=== PATIENT | female | born 1965 | race Caucasian/White ===

== ENCOUNTER 2021-07-17 15:03 | Outpatient (CLI) | payer OTHER, SELFPAY ==
--- NOTE | ~2021-07-17 | MM_ITS ---
EXAMINATION: MM screening [facility] BI w cecy HISTORY: Screening mammogram TECHNIQUE: Craniocaudal and mediolateral oblique 3-D tomosynthesis images were obtained and synthetic 2-D images were generated. CAD analysis was submitted and interpreted. COMPARISON: No prior mammogram is available for comparison at this institution. BREAST PARENCHYMAL COMPOSITION: There are scattered areas of fibroglandular density. FINDINGS: There is no evidence of suspicious mass, calcification, or architectural distortion to sugg est malignancy in either breast. IMPRESSION: 1. No mammographic evidence of malignancy. 2. Recommend routine screening mammography in one year. BI-RADS Category 1: Negative Reviewed, dictated and finalized at location A.
== END 2021-07-17 15:04 | disposition home or self-care (01) ==
LOC: ANHIMG 15:05
PROVIDERS: PCP Nurse Practitioner; Visit Provider Nurse Practitioner
DX: Z12.31 Encounter for screening mammogram for malignant neoplasm of breast (principal)
CPT/HCPCS: 77063; 77067

== ENCOUNTER 2021-08-10 14:01 | Outpatient (RCR) | payer OTHER, SELFPAY ==
[2021-08-10 14:12] VITALS: BMI 38.9
[2021-08-10 14:16] VITALS: BMI 38.9
== END 2021-10-30 10:42 | disposition home or self-care (01) ==
LOC: ANHDMC 14:01
PROVIDERS: PCP Nurse Practitioner; Visit Provider Nurse Practitioner
DX: E66.9 Obesity, unspecified (principal); Z68.38 Body mass index [BMI] 38.0-38.9, adult; Z71.3 Dietary counseling and surveillance
CPT/HCPCS: 97802

== ENCOUNTER 2022-05-25 00:31 | Day surgery (SDC) | payer OTHER, SELFPAY ==
[2022-05-11 08:36] VITALS: BMI 38.3
[2022-05-25 06:39] VITALS: BP 131/62; PULSE 78; RESP 17; TEMP 36.5; O2SAT 97; BMI 37.3
[2022-05-25] MEDS: LACTATED RINGERS 1,000 ML 150 ML IV CONT (06:48)
--- NOTE | 2022-05-25 07:45 | WPDANESEPPF ---
Anes - Initial Pre Proc Eval Procedure: Operation Date: 05/25/22 08:00 Proposed Procedures p Screening Colonoscopy - Serge Rodrigez MD Date/Time: 05/25/22 07:45 Surgeon: Serge Rodrigez MD Pre Op Diagnosis: neoplasm screening Patient Data Age: 56 Gender: F Height: 1.65 m Weight: 101.7 kg Last Vital Signs Temp 97.7 F 05/25/22 06:39 Pulse 78 05/25/22 06:39 Resp 17 05/25/22 06:39 BP 131/62 05/25/22 06:39 Pulse Ox 97 05/25/22 06:39 O2 Del Method Room Air 05/25/22 06:39 Allergies Allergy/AdvReac Type Severity Reaction Status Date / Time No Known Allergies Allergy Verified 05/25/22 06:38 Home Medications Medication Instructions Recorded Confirmed Type oxybutynin chloride 5 mg tablet 5 mg PO DAILY #90 tabs 02/26/22 05/25/22 Rx simvastatin 10 mg tablet 10 mg PO QHS #90 tabs 02/26/22 05/25/22 Rx famotidine 20 mg tablet 20 mg PO BID #60 tabs 03/13/22 05/25/22 Rx Patient hx anesthesia problems: none Family hx anesthesia problems: none Results Review: All pre-operative results and documents have been reviewed as part of the pre-operative evaluation. [facility] Past Medical History Medical History GERD (gastroesophageal reflux disease) Prediabetes Urge incontinence Surgical History Surgical History History of bladder surgery (~2010) Family History Family History Sibling Diabetes mellitus Family history of obesity Alcoholism Cancer Mother Hypertension Family history of arthritis Family history of congestive heart failure Family history of hearing loss Heart disease Cerebrovascular accident Father Family history of alcoholism Alcoholism Hypertension Grandparent Cancer Other Depression Anxiety Social History Social History Smoking status: Never smoker Tobacco type: cigarettes Additional smoking assessment comments: Father smoked Alcohol intake: never Substance use: never Substance use type: does not use Living arrangements: alone Spiritual care concerns: No Anes - Eval Final PreProcedure Day of Procedure 05/25/22 07:45 Patient weight: obese Heart: regular rate and rhythm Lungs: clear to auscultation Airway: Mallampati scale class II Neurological: alert and oriented Last oral intake: >/= 8 hours ASA classification: II Emergent: no Anesthetic plan: proceed Anesthesia type and monitoring: general GIVS and standard monitoring Results Review: All pre-operative results and documents have been reviewed as part of the pre-operative evaluation. Informed Consent: The patient's anesthetic plan and its attendant risks and benefits were discussed with the patient/family/POA. Questions were solicited and answers provided to the satisfaction of the patient/family/POA.
--- NOTE | 2022-05-25 07:52 | PM.HPGS ---
History of Present Illness History of Present Illness Consent: Risks, benefits, and alternatives have been discussed and questions answered. Patient agrees to proceed with procedure. Chief complaint: neoplasm screening Narrative: Chayo Soares is a 56 year old female here for screening colonoscopy, last one 6 years ago Review of Systems Constitutional: Constitutional: Denies headache(s) and Denies weakness Eyes: Eyes: Denies blurry vision ENT: Reports Normal hearing present, Denies headache(s) and Denies neck pain Cardiovascular: Cardiovascular: Denies chest pain and Denies dyspnea Respiratory: Respiratory: Denies dyspnea Gastrointestinal: Gastrointestinal: Reports no additional gastrointestinal complaints Genitourinary: Genitourinary: Denies dysuria Musculoskeletal: Musculoskeletal: Denies neck pain Integumentary/Breasts: Skin/Breast: Denies dry skin Neurologic: Reports Normal hearing present, Denies headache(s) and Denies weakness Psychiatric: Psychiatric: Denies anxiety Endocrine: Endocrine: Denies change in body appearance Hematologic/Lymphatic: Hematologic/Lymphatic: Denies easy bleeding Allergic/Immunologic: Allergic/Immunologic: Denies urticaria PMFSH Past Medical History Medical History (Updated 05/25/22 @ 07:53 by Serge Rodrigez MD) Colon cancer screening GERD (gastroesophageal reflux disease) Prediabetes Urge incontinence Surgical History Surgical History History of bladder surgery (~2010) Family History Family History Sibling Diabetes mellitus Family history of obesity Alcoholism Cancer Mother Hypertension Family history of arthritis Family history of congestive heart failure Family history of hearing loss Heart disease Cerebrovascular accident Father Family history of alcoholism Alcoholism Hypertension Grandparent Cancer Other Depression Anxiety Social History Social History Smoking status: Never smoker Tobacco type: cigarettes Additional smoking assessment comments: Father smoked Alcohol intake: never Substance use: never Substance use type: does not use Living arrangements: alone Spiritual care concerns: No Meds Home Medications and Allergies Home Medications Medication Instructions Recorded Confirmed Type oxybutynin chloride 5 mg tablet 5 mg PO DAILY #90 tabs 02/26/22 05/25/22 Rx simvastatin 10 mg tablet 10 mg PO QHS #90 tabs 04/04/22 07/01/22 Rx famotidine 20 mg tablet 20 mg PO BID #60 tabs 03/13/22 05/25/22 Rx Allergies Allergy/AdvReac Type Severity Reaction Status Date / Time No Known Allergies Allergy Verified 05/25/22 06:38 Vital Signs Vital Signs - 24 hr 05/25/22 06:39 Temperature 97.7 F Pulse Rate 78 Respiratory Rate 17 Blood Pressure 131/62 Pulse Oximetry 97 Oxygen Delivery Room Air Exam Const: General: comfortable and no acute distress HENMT: General nose exam: Normal nares present Eyes: General: appearance normal, both eyes and all related structures Neck: Neck: no JVD Resp: Auscultation: clear to auscultation bilaterally Cardio: Rate: regular rate Rhythm: regular rhythm GI: Inspection: non-distended GI Palp: Yes Soft to palpation Skin: General skin exam: normal color Neuro: General: gait normal Speech: normal speech Extrem: General: normal to inspection Psych: Mental Status: mental status grossly normal Assessment and Plan Assessment and plan (1) Colon cancer screening: Code(s): Z12.11 - Encounter for screening for malignant neoplasm of colon Status: Acute Assessment and Plan: colonoscopy
[2022-05-25 08:16] VITALS: BP 122/68; PULSE 81; RESP 17; O2SAT 94
[2022-05-25 08:26] VITALS: BP 108/61; PULSE 70; RESP 11; O2SAT 98
== END 2022-05-25 08:52 | disposition home or self-care (01) ==
PROVIDERS: PCP Family Medicine; Visit Provider Internal Medicine Gastroenterology
PROC: 0DJD8ZZ Inspection of Lower Intestinal Tract, Via Natural or Artificial Opening Endoscopic (ICD-10-PCS; CPT 45378; principal; 2022-05-25 08:00)
DX: Z12.11 Encounter for screening for malignant neoplasm of colon (principal); K57.30 Diverticulosis of large intestine without perforation or abscess without bleeding; K64.8 Other hemorrhoids; K21.9 Gastro-esophageal reflux disease without esophagitis; R73.03 Prediabetes; N39.41 Urge incontinence; E66.9 Obesity, unspecified; Z68.37 Body mass index [BMI] 37.0-37.9, adult
CPT/HCPCS: 45378; J2001; J2704; J7120

== ENCOUNTER → 2022-10-04 16:20 | Outpatient (CLI) | payer OTHER, SELFPAY ==
--- NOTE | ~2022-10-04 | MR_ITS ---
EXAMINATION: MR shoulder RT wo con DATE: 10/04/2022 17:03 INDICATION: Right shoulder pain. TECHNIQUE: Magnetic resonance imaging (MRI) of the right shoulder was performed without intravenous c ontrast. Sequences included axial PD-weighted FS FSE, coronal oblique PD-weighted FS FSE and T2-weigh niru FS FSE, and sagittal oblique T2-weighted FS FSE and T1-weighted FSE. COMPARISON: None. FINDINGS: Coracoacromial arch: The acromion undersurface is curved in morphology (type II). There is severe acromioclavicular joint osteoarthritis including inferiorly directed osteophytes. There is mild subacromial/subdeltoid bursit is. Rotator cuff: There is a bursal sided partial-thickness tear of anterior supraspinatus tendon measuring 9 mm anteri or to posterior by 4 mm proximal to distal by 80% tendon thickness. There is a small interstitial tea r of infraspinatus tendon. Teres minor tendon is normal. There is mild subscapularis tendinopathy. Th ere is no asymmetric fatty atrophy of the rotator cuff muscle bellies. Biceps tendon and glenoid labrum: Biceps tendon is in bicipital groove. Intra-articular biceps tendon is normal. There is ossification of the posterior labrum. Fluid: There is no glenohumeral joint effusion. Bones/cartilage: There is partial-thickness cartilage loss of glenoid and humeral head. IMPRESSION: 1. Partial-thickness tears of supraspinatus and infraspinatus tendons. 2. Mild glenohumeral joint chondrosis. 3. Severe acromioclavicular joint osteoarthritis. 4. Mild subacromial/subdeltoid bursitis. Reviewed, dictated and finalized at location A. 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
== END ==
PROVIDERS: PCP Family Medicine; Visit Provider Nurse Practitioner
DX: M19.011 Primary osteoarthritis, right shoulder (principal); M75.51 Bursitis of right shoulder
CPT/HCPCS: 73221

== ENCOUNTER 2022-12-18 16:15 | Outpatient (CLI) | payer OTHER, SELFPAY ==
--- NOTE | ~2022-12-18 | MM_ITS ---
EXAMINATION: MM screening [facility] BI w cecy HISTORY: Screening mammogram TECHNIQUE: Craniocaudal and mediolateral oblique 3-D tomosynthesis images were obtained and synthetic 2-D images were generated. CAD analysis was submitted and interpreted. COMPARISON: 07/17/2021 bilateral screening mammogram examination the BREAST PARENCHYMAL COMPOSITION: The breasts are almost entirely fatty. FINDINGS: There is no evidence of suspicious mass, calcification, or architectural distortion to sugg est malignancy in either breast. There has been no suspicious interval change. IMPRESSION: 1. No mammographic evidence of malignancy. 2. Recommend routine screening mammography in one year. BI-RADS Category 1: Negative Reviewed, dictated and finalized at location A. 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
== END 2022-12-18 16:16 | disposition home or self-care (01) ==
PROVIDERS: PCP Family Medicine; Visit Provider Family Medicine
DX: Z12.31 Encounter for screening mammogram for malignant neoplasm of breast (principal)
CPT/HCPCS: 77063; 77067

== ENCOUNTER → 2023-03-25 15:43 | Outpatient (CLI) | payer OTHER, SELFPAY ==
--- NOTE | ~2023-03-25 | XR_ITS ---
EXAMINATION: XR hip RT min 3V w AP pelvis DATE: 03/25/2023 15:58 INDICATION: 2 months of right hip pain TECHNIQUE: Anteroposterior view of the pelvis and anteroposterior and frog-leg lateral views of the r ight hip were obtained. COMPARISON: None. FINDINGS: Bone alignment is normal. No fracture or suspected avascular necrosis. Mild osteoarthritis at the yovany ateral hip and sacroiliac joints. Mild lumbar spondylosis. Relatively symmetric enthesophytes along t he anterosuperior iliac spine, cephalad margins of the lateral acetabula minimally and at the greater trochanters. IMPRESSION: 1. Mild bilateral hip and sacroiliac osteoarthritis. No acute osseous abnormality. Reviewed, dictated and finalized at location B. IMPRESSION: 1. Mild bilateral hip and sacroiliac osteoarthritis. No acute osseous abnormali ty.
== END ==
PROVIDERS: PCP Family Medicine; Visit Provider Nurse Practitioner
DX: M16.0 Bilateral primary osteoarthritis of hip (principal); M53.3 Sacrococcygeal disorders, not elsewhere classified
CPT/HCPCS: 73502

== ENCOUNTER 2024-03-27 15:36 | Outpatient (CLI) | payer OTHER, SELFPAY ==
--- NOTE | ~2024-03-27 | MM_ITS ---
EXAMINATION: MM screening [facility] BI w cecy HISTORY: Screening mammogram TECHNIQUE: Craniocaudal and mediolateral oblique 3-D tomosynthesis images were obtained and synthetic 2-D images were generated. CAD analysis was submitted and interpreted. COMPARISON: 12/18/2022, 07/17/2021 and lateral screening mammogram examinations BREAST PARENCHYMAL COMPOSITION: The breasts are almost entirely fatty. FINDINGS: Benign-appearing probable inspissated in the posterior outer mid upper right breast. There is no evidence of suspicious mass, calcification, or architectural distortion to suggest malignancy i n either breast. There has been no suspicious interval change. IMPRESSION: 1. No mammographic evidence of malignancy. 2. Recommend routine screening mammography in one year. BI-RADS Category 2: Benign finding(s). Reviewed, dictated and finalized at location A.
== END 2024-03-27 15:37 | disposition home or self-care (01) ==
LOC: ANHIMG 15:42
PROVIDERS: PCP Family Medicine; Visit Provider Nurse Practitioner Family
DX: Z12.31 Encounter for screening mammogram for malignant neoplasm of breast (principal)
CPT/HCPCS: 77063; 77067

== ENCOUNTER 2024-12-21 08:07 | Outpatient (CLI) | payer OTHER, SELFPAY ==
--- NOTE | ~2024-12-21 | XR_ITS ---
EXAMINATION: [id number] DATE: 12/21/2024 08:23 INDICATION: Left knee pain and limited range of motion post fall one month prior TECHNIQUE: Weight bearing anteroposterior and flexed lateral views of the left knee was obtained. COMPARISON: None. FINDINGS: Bone alignment is normal. No fracture. Tricompartmental osteoarthritis with small to moderate size ma rginal osteophytes in all 3 compartments and moderate joint space narrowing in the medial compartment . Soft tissues are unremarkable with no knee joint effusion. IMPRESSION: 1. Moderate severity medial compartment predominant tricompartmental osteoarthritis of the left knee. Reviewed, dictated and finalized at location B. 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 Moderate severity medial compartment predominant tricompartmental osteoarthr itis of the left knee.
== END 2024-12-21 08:08 | disposition home or self-care (01) ==
LOC: GOSHIMG 08:08
PROVIDERS: PCP Family Medicine; Visit Provider Student in an Organized Health Care Education/Training Program
DX: M17.12 Unilateral primary osteoarthritis, left knee (principal)
CPT/HCPCS: 73560

== ENCOUNTER 2025-01-01 15:38 | Outpatient (CLI) | payer OTHER, SELFPAY ==
--- NOTE | ~2025-01-01 | MR_ITS ---
EXAMINATION: MR knee LT wo con DATE: 01/01/2025 16:12 INDICATION: Left knee pain. TECHNIQUE: Magnetic resonance imaging (MRI) of the left knee was performed without intravenous contra st. Sequences included axial PD-weighted FS FSE, coronal PD-weighted FSE and PD-weighted FS FSE, sagi ttal PD-weighted FSE, and sagittal T2-weighted FS FSE. COMPARISON: Left knee radiographs 12/21/2024 FINDINGS: Medial compartment: There is a complex tear of body and posterior horn of medial meniscus. There is extensive partial thi ckness cartilage loss of femoral condyle and tibial condyle. There is full-thickness cartilage loss o f tibial condyle involving the anteromedial articular surface with mild subchondral edema-like marrow signal intensity. There is full-thickness cartilage loss of femoral condyle involving the central an d medial articular surface with mild subchondral edema-like marrow signal intensity. Osteophytes are noted. Lateral compartment: There is a vertical tear of body of lateral meniscus. There is partial-thickness cartilage loss of fe moral condyle, deep at the central articular surface. There is shallow partial-thickness cartilage lo ss of tibial condyle. Osteophytes are noted. Patellofemoral compartment: There is full-thickness cartilage loss of patellar medial facet. There is deep partial-thickness cart ilage loss of patellar median ridge and shallow partial-thickness cartilage loss of patellar lateral facet. There is full-thickness cartilage loss of central and medial trochlea and partial-thickness ca rtilage loss of lateral trochlea. Osteophytes are noted. Ligaments and tendons: Anterior cruciate ligament is thickened with increased signal intensity, consistent with mucoid degen eration. Posterior cruciate ligament is normal. There are changes of prior sprains of medial collater al ligament and fibular collateral ligament characterized by increased signal intensity and thickenin g proximally. There is mild patellar tendinopathy. Fluid: There is a small knee joint effusion. There is trace fluid in a Briggs's cyst. There is mild superfici al infrapatellar bursitis. IMPRESSION: 1. Severe chondrosis of medial and patellofemoral compartments and moderate chondrosis of lateral com partment. 2. Tears of medial and lateral menisci. 3. Small knee joint effusion. Reviewed, dictated and finalized at location A. 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 Severe chondrosis of medial and patellofemoral compartments and moderate cho ndrosis of lateral compartment. 2. Tears of medial and lateral menisci. 3. Small knee joint effusion.
== END 2025-01-01 15:39 | disposition home or self-care (01) ==
PROVIDERS: PCP Family Medicine; Visit Provider Student in an Organized Health Care Education/Training Program
DX: S83.282A Other tear of lateral meniscus, current injury, left knee, initial encounter (principal); S83.242A Other tear of medial meniscus, current injury, left knee, initial encounter; M94.262 Chondromalacia, left knee; M25.462 Effusion, left knee; X58.XXXA Exposure to other specified factors, initial encounter
CPT/HCPCS: 73721

== ENCOUNTER 2025-06-24 13:55 | Outpatient (CLI) | payer OTHER, SELFPAY ==
--- NOTE | ~2025-06-24 | DEXA_ITS ---
Bone Density Report Name: IRMA DUGGAN Age: 59 Sex: Female Ethnicity: White Date of : 1965 Indication: postmenopausal; screening for osteoporosis; Referring Provider: Otilia Davies Study: Bone densitometry was performed. Exam Date: June 24, 2025 Accession number: [id number] Bone Density: Region BMD T-score Z-score Classification AP Spine(L1-L4) 1.235 1.7 3.1 Normal Femoral Neck (Left) 0.784 -0.6 0.7 Normal Total Hip (Left) 1.134 1.6 2.5 Normal Femoral Neck (Right) 0.790 -0.5 0.7 Normal Total Hip (Right) 1.119 1.5 2.4 Normal Total Hip Mean 1.126 1.6 2.5 Normal World Health Organization criteria for BMD impression classify patients as: Normal (T-score at or above -1.0), Osteopenia (T-score between -1.0 and -2.5), or Osteoporosis (T-score at or below -2.5). 10-year Fracture Risk: FRAX not reported because: All T-scores for Spine Total, Hip Total, Femoral Neck at or above -1.0 Clinical Information Provided by Patient: Patient maximum height was 65 Menopause Age: 48 No regular weight bearing exercise Drinks caffeinated beverages Onset of menses at age 15 Number of children 1 Missed period for more than 6 months in a row Impression: The patient has normal bone mass. Discussion: BONE DENSITY IS ABOVE THE MINIMUM DESIRABLE LEVEL AT ALL SKELETAL SITES TESTED. This patient?s bone mineral density is above the minimum desirable level (T-score -1.0 or better) at all sites measured. The patient should follow a healthful lifestyle (good nutrition with adequate calcium and vitamin D, and appropriate weight-bearing exercise). Follow-Up: Consider repeating this study in 5 years or sooner if there is some new clinical indication. Reported by: MARIA A on 06/24/2025 2:27:00 PM. Reviewed, dictated and finalized at location A.
== END 2025-06-24 13:56 | disposition home or self-care (01) ==
LOC: MICIMG 13:55
PROVIDERS: PCP Nurse Practitioner Family; Visit Provider Nurse Practitioner Family
DX: Z78.0 Asymptomatic menopausal state (principal)
CPT/HCPCS: 77080

== ENCOUNTER 2025-09-24 13:28 | Outpatient (CLI) | payer OTHER, SELFPAY ==
--- NOTE | ~2025-09-24 | MM_ITS ---
EXAMINATION: MM screening [facility] BI w cecy HISTORY: Screening TECHNIQUE: Craniocaudal and mediolateral oblique 3-D tomosynthesis images were obtained and synthetic 2-D images were generated. CAD analysis was submitted and interpreted. COMPARISON: Comparison to multiple prior studies sequentially, with oldest reviewed study dated 07/17/2021. BREAST PARENCHYMAL COMPOSITION: Not Dense: The breasts are almost entirely fatty. FINDINGS: There is no evidence of suspicious mass, calcification, or architectural distortion to suggest malignancy in either breast. There has been no suspicious interval change. IMPRESSION: 1. No mammographic evidence of malignancy. 2. Recommend routine screening mammography in one year. BI-RADS Category 1: Negative Reviewed, dictated and finalized at location B.
== END 2025-09-24 13:29 | disposition home or self-care (01) ==
LOC: MICIMG 13:29
PROVIDERS: PCP Family Medicine; Visit Provider Family Medicine
DX: Z12.31 Encounter for screening mammogram for malignant neoplasm of breast (principal)
CPT/HCPCS: 77063; 77067